=== PATIENT | male | born 1985 | race Caucasian/White ===

== ENCOUNTER 2018-12-06 01:58 | Emergency (ER) | payer MEDICAID ==
[~2018-12-06] VITALS: Ht 172.7 cm; Wt 81.6 kg
[2018-12-06 02:08] VITALS: Ht 172.7 cm; Wt 81.6 kg
[2018-12-06 04:19] VITALS: BP 165/86
== END 2018-12-06 04:19 | disposition home or self-care (01) ==
LOC: ED 01:58
DX: Z76.0 Encounter for issue of repeat prescription (principal); Z88.0 Allergy status to penicillin; Z88.5 Allergy status to narcotic agent

== ENCOUNTER 2018-12-08 17:12 | Emergency (ER) | payer MEDICAID ==
[~2018-12-08] VITALS: Ht 177.8 cm; Wt 77.1 kg
[2018-12-08 17:20] VITALS: BP 131/99; Ht 177.8 cm; Wt 77.1 kg
== END 2018-12-08 18:25 | disposition left against medical advice (07) ==
LOC: ED 17:12
DX: Z53.21 Procedure and treatment not carried out due to patient leaving prior to being seen by health care provider (principal)